=== PATIENT | female | born 1965 | race Caucasian/White ===

== ENCOUNTER 2022-09-05 14:52 | Emergency (ER) | payer OTHER ==
[2022-09-05] MEDS: Ketorolac 30 MG/ML SDV IM ONE (15:22)
[2022-09-05] MEDS: Take Home: Amoxicillin/Clavulanate K 875-125 MG Tab, 2 Tab Pack PO ONE (15:24)
[2022-09-05] MEDS: cefTRIAXone 1 GM Vial IVPUSH ONE (15:32)
[2022-09-05] MEDS: cefTRIAXone 1 GM Vial IM ONE (15:34)
== END 2022-09-05 15:40 | disposition home or self-care (01) ==
LOC: CC.ED 14:52
DX: K04.7 Periapical abscess without sinus (principal); I10 Essential (primary) hypertension; E78.5 Hyperlipidemia, unspecified; Z79.82 Long term (current) use of aspirin; Z79.899 Other long term (current) drug therapy
CPT/HCPCS: 36415; 80053; 85025; 96372; 99283; A9270-GY; J0696; J1885

== ENCOUNTER 2023-10-02 11:09 | Emergency (ER) | payer OTHER ==
[2023-10-02] MEDS: HYDROmorphone 0.5 MG/0.5 ML Syringe SUBCUT STA (11:25)
[2023-10-02] MEDS: Ondansetron 4 MG Tab.DIS PO ONE (11:46)
[2023-10-02] MEDS: Take Home: Ondansetron 4 MG Tab.DIS, 2 Tab Pack PO ONE (13:30)
[2023-10-02] MEDS: Take Home: Acetaminophen/HYDROcodone 325-5 MG, 2 Tab Pack PO ONE (13:31)
== END 2023-10-02 13:45 | disposition home or self-care (01) ==
LOC: CC.ED 11:09
DX: S52.092A Other fracture of upper end of left ulna, initial encounter for closed fracture (principal); I10 Essential (primary) hypertension; E78.00 Pure hypercholesterolemia, unspecified; W18.30XA Fall on same level, unspecified, initial encounter
CPT/HCPCS: 29105; 73080; 96372; 99283; A9270; J1170; 29125